=== PATIENT | female | born 1995 | race Caucasian/White ===

== ENCOUNTER 2019-08-15 15:02 | Emergency (ER) | payer BC ==
[~2019-08-15] VITALS: Ht 154.9 cm; Wt 46.3 kg
--- NOTE | 2019-08-15 15:15 | NUR ---
ED Nurse Note: Pt arrives with reports of having an allergic reaction to possible butter. Pt started having throat and ear itching and hive. 2 Benadryls taken prior to arrival to ER. ao4. nad. vss. denies respiratory distress or sob. accompanied by friend.
[2019-08-15 15:20] VITALS: BP 114/75
[2019-08-15] MEDS ORDERED: EPIPEN 2-P0.3 MG/0.3 IM (15:23)
--- NOTE | 2019-08-15 15:23 | Emergency Room Report ---
History of Present Illness General Chief Complaint: Allergic Reaction Source: Patient Present Illness HPI 23-year-old female history of allergy to tree nuts carries EpiPen's, presents with hives on her face, itchy throat, no shortness of breath no chest pain, started 1 hour ago when she had a biscuit that may have had nuts in it, severity was mild, no known vomiting patient presents for evaluation only aggravating factors tree nuts patient presents for evaluation Allergies: Coded Allergies: TREE NUT (Verified Allergy, Unknown, 08/15/19) Patient History Past Medical History: see triage record Reviewed Nursing Documentation: PMH: Agreed; PSxH: Agreed Review of Systems All Other Systems: negative except mentioned in HPI Physical Exam Vital Signs Date Time Temp Pulse Resp B/P (MAP) Pulse Ox O2 Delivery O2 Flow Rate FiO2 08/15/19 15:15 98.1 96 13 114/75 (88) 100 Room Air Sp02 EP Interpretation: reviewed, normal General Appearance: well appearing, no apparent distress, alert Head: normocephalic, atraumatic Eyes: bilateral eye PERRL, bilateral eye EOMI ENT: uvula midline, moist mucus membranes Neck: supple, thyroid normal, supple/symm/no masses Respiratory: lungs clear, no respiratory distress, no retraction, no accessory muscle use Cardiovascular #1: normal peripheral pulses, regular rate, rhythm, no edema, no gallop, no murmur Gastrointestinal: non tender, soft, no guarding, no rebound Musculoskeletal: normal inspection Neurologic: alert, oriented x3 Psychiatric: mood/affect normal Skin: no rash, warm/dry Medical Decision Making Diagnostic Impression: Primary Impression: Allergic reaction Qualified Codes: T78.40XA - Allergy, unspecified, initial encounter ER Course 23-year-old female presents with mild allergic reaction, no signs of anaphylaxis , airway is patent, hives of already resolved, will provide Decadron will also provide famotidine patient deferred a test Patient already has an epinephrine pen disposition home with return precautions follow-up with PCP Disposition: HOME, SELF-CARE Condition: Stable Scripts Epinephrine (Epipen 2-[place]) 0.3 Mg/0.3 Ml Auto.injct 0.3 MG IM ONCE PRN for anaphylaxis, #1 EA Prov: Yg Shahid MD 08/15/19 Referrals: [facility] Patient Instructions: Food Allergy, [id number] Additional Instructions: The patient was provided with discharge instructions, notified to follow-up with a primary care doctor and or specialist in the next 24-48 hours, and to return to the ED if they have worsening of their symptoms. Please note that this report is being documented using DRAGON technology. This can lead to erroneous entry secondary to incorrect interpretation by the dictating instrument. Yg Shahid MD Aug 15, 2019 15:23
--- NOTE | 2019-08-15 15:30 | NUR ---
ER DISCHARGE NOTE: Patient is cleared to be discharged per ERMD, pt is aox4, on room air, with stable vital signs. accompanied by friend. pt was given dc and prescription instructions, pt was able to verbalize understanding, pt id band removed. pt is able to ambulate with steady gait. pt took all belongings.
[2019-08-15 15:45] VITALS: BP 114/75
== END 2019-08-15 15:30 | disposition home or self-care (01) ==
LOC: EMR 15:30
DX: T78.1XXA Other adverse food reactions, not elsewhere classified, initial encounter (principal); L50.9 Urticaria, unspecified; Z91.018 Allergy to other foods
CPT/HCPCS: 99284; J8540